=== PATIENT | male | born 1930 | race Caucasian/White ===

== ENCOUNTER 2017-05-09 07:17 | Inpatient (IN) | payer OTHER ==
--- NOTE | 2017-05-09 07:52 | EDPHY ---
H & P Time Seen by Provider: 05/09/17 07:38 HPI/ROS: CHIEF COMPLAINT: Confusion HISTORY OF PRESENT ILLNESS: Patient is an 86-year-old male who presents emergency department with his . His helps gives the history. The patient became ill yesterday with URI type symptoms. He developed a nonproductive cough and nasal congestion. He has also had a runny nose. His states his temperature was elevated at 99.7. She is given Tamiflu x4. Last evening he seemed agitated while in the bed. He was not responding as appropriately as normal. At 5:30 a.m. In the morning he had difficulty getting out of bed. He had a shuffled gait. He seems more confused. The patient states that he feels"not great."He complains of a mild cough with no chest pain. No abdominal pain. REVIEW OF SYSTEMS: My complete review of systems is negative except as mentioned in the HPI. Past Medical/Surgical History: Includes coronary artery disease, urinary tract infection, urosepsis, chronic back pain, hypertension, high cholesterol Past surgical history: CABG Social history: Patient lives at home with his . He does not smoke. Smoking Status: Never smoked Physical Exam: 37.3, 153/81, 70, 16, 94% on room air GENERAL: No acute distress, alert. HEENT: Eyes normal to inspection, normal pharynx, no signs of dehydration. NECK: No thyromegaly, no lymphadenopathy, supple. RESPIRATORY: Coarse breath sounds bilaterally, no rales, rhonchi or wheezing. CVS: Regular rate and rhythm, no rubs, murmurs, or gallops. ABDOMEN: Soft, nontender, nondistended, no organomegaly. BACK: Normal to inspection, no CVA tenderness. SKIN: Normal color, no rash, warm, dry. No pallor. EXTREMITIES: No pedal edema, no calf tenderness, no Homans sign or cords, no joint swelling. NEURO/PSYCH: Higher functions: Alert and Oriented x3. Normal speech and cognition. Normal mood and affect. Cranial nerves: Normal as tested. Cerebellar: Normal as tested. Good finger to nose, good [id number], normal gait. Peripheral exam: Normal motor exam. Normal sensation. Constitutional: Initial Vital Signs Temperature (C) 37.3 C 05/09/17 07:18 Heart Rate 78 05/09/17 07:18 Respiratory Rate 16 05/09/17 07:18 Blood Pressure 153/81 H 05/09/17 07:18 O2 Sat (%) 94 05/09/17 07:18 O2 Delivery Mode Room Air Allergies/Adverse Reactions: No Known Allergies Allergy (Unverified 03/21/09 19:21) Home Medications: Medication Instructions Recorded Aspirin [Aspirin 81mg (*)] 81 mg PO DAILY 04/29/14 Herbals/Supplements -Info Only 1 ea PO DAILY 04/29/14 Simvastatin [Zocor 40 mg] 40 mg PO DAILY18 04/29/14 clonazePAM [Klonopin (*)] 0.5 mg PO HS 04/29/14 Metoprolol Tartrate [Lopressor 50 50 mg PO BID #60 tab 05/04/14 mg (*)] Tamsulosin HCl [Flomax 0.4 MG (*)] 0.4 mg PO DAILY #30 cap 05/04/14 Medical Decision Making ED Course/Re-evaluation: In the emergency department I met the patient on arrival. I took history from both the patient and his . An IV was placed. Patient was given normal saline 500 mL IV for hydration. Laboratory studies, EKG, head CT and chest x- ray were ordered. Patient's sodium is low 133. Glucose was 106. Chemistry panel otherwise unremarkable. CBC showed a mild anemia. Lactic acid was 0.6. Differential Diagnosis: My differential includes but is not limited to pneumonia, bronchitis, URI, influenza, urinary tract infection, bacteremia, sepsis - Data Points Laboratory Results: Laboratory Results 05/09/17 07:35 05/09/17 07:35 05/09/17 05/09/17 05/09/17 08:05 07:35 07:35 WBC RBC Hgb Hct MCV MCH MCHC RDW Plt Count MPV Neut % (Auto) Lymph % (Auto) [place] % (Auto) Eos % (Auto) Baso % (Auto) Nucleat RBC Rel Count Absolute Neuts (auto) Absolute Lymphs (auto) Absolute Monos (auto) Absolute Eos (auto) Absolute Basos (auto) Absolute Nucleated RBC Immature Gran % Immature Gran # PT INR APTT VBG Lactic Acid 0.6 mmol/L L mmol/L (0.7-2.1) Sodium Potassium Chloride Carbon Dioxide Anion Gap BUN Creatinine Estimated GFR Glucose Calcium Total Bilirubin Urine Color Pending Urine Appearance Pending Urine pH Pending Ur Specific [place] Pending Urine Protein Pending Urine Ketones Pending Urine Blood Pending Urine Nitrate Pending Urine Bilirubin Pending Urine Urobilinogen Pending Ur Leukocyte Esterase Pending Urine RBC Pending Urine WBC Pending Ur Epithelial Cells Pending Urine Glucose Pending Nasal Influenza A PCR Pending Nasal Influenza B PCR Pending 05/09/17 05/09/17 05/09/17 07:35 07:35 07:35 WBC 7.83 10^3/uL 10^3/uL (3.80-9.50) RBC 4.50 10^6/uL 10^6/uL (4.40-6.38) Hgb 13.4 g/dL L g/dL (13.7-17.5) Hct 39.5 % L % (40.0-51.0) MCV 87.8 fL fL (81.5-99.8) MCH 29.8 pg pg (27.9-34.1) MCHC 33.9 g/dL g/dL (32.4-36.7) RDW 13.6 % % (11.5-15.2) Plt Count 174 10^3/uL 10^3/uL (150-400) MPV 9.1 fL fL (8.7-11.7) Neut % (Auto) 78.4 % H % (39.3-74.2) Lymph % (Auto) 10.2 % L % (15.0-45.0) [place] % (Auto) 9.8 % % (4.5-13.0) Eos % (Auto) 0.9 % % (0.6-7.6) Baso % (Auto) 0.3 % % (0.3-1.7) Nucleat RBC Rel Count 0.0 % % (0.0-0.2) Absolute Neuts (auto) 6.14 10^3/uL 10^3/uL (1.70-6.50) Absolute Lymphs (auto) 0.80 10^3/uL L 10^3/uL (1.00-3.00) Absolute Monos (auto) 0.77 10^3/uL 10^3/uL (0.30-0.80) Absolute Eos (auto) 0.07 10^3/uL 10^3/uL (0.03-0.40) Absolute Basos (auto) 0.02 10^3/uL 10^3/uL (0.02-0.10) Absolute Nucleated RBC 0.00 10^3/uL 10^3/uL (0-0.01) Immature Gran % 0.4 % % (0.0-1.1) Immature Gran # 0.03 10^3/uL 10^3/uL (0.00-0.10) PT 13.7 SEC SEC (12.0-15.0) INR 1.03 (0.83-1.16) APTT 33.1 SEC SEC (23.0-38.0) VBG Lactic Acid Sodium 133 mEq/L L mEq/L (135-145) Potassium 4.7 mEq/L mEq/L (3.5-5.2) Chloride 98 mEq/L mEq/L (97-110) Carbon Dioxide 23 mEq/l mEq/l (22-31) Anion Gap 12 mEq/L mEq/L (8-16) BUN 18 mg/dL mg/dL (7-23) Creatinine 1.2 mg/dL mg/dL (0.7-1.3) Estimated GFR 57 Glucose 106 mg/dL H mg/dL (70-100) Calcium 8.9 mg/dL mg/dL (8.5-10.4) Total Bilirubin 0.7 mg/dL mg/dL (0.1-1.4) Urine Color Urine Appearance Urine pH Ur Specific [place] Urine Protein Urine Ketones Urine Blood Urine Nitrate Urine Bilirubin Urine Urobilinogen Ur Leukocyte Esterase Urine RBC Urine WBC Ur Epithelial Cells Urine Glucose Nasal Influenza A PCR Nasal Influenza B PCR Medications Given: Discontinued Medications Sodium Chloride (Ns) 500 mls @ 0 mls/hr IV EDNOW ONE; Wide Open PRN Reason: Protocol Stop: 05/09/17 08:00 Last Admin: 05/09/17 08:01 Dose: 500 mls Departure - Departure Disposition: [facility] Acute Condition: Good Referrals: MAR FELIX [Primary Care Provider] - As per Instructions
[2017-05-09] MEDS ORDERED: NS 500 ML IV ONE (07:59)
[2017-05-09 08:07] LABS: PLATELET COUNT 174 10^3/uL (150-400)
[2017-05-09 08:17] LABS: INR 1.03 (0.83-1.16); PROTIME(PATIENT) 13.7 SEC (12.0-15.0)
[2017-05-09] MEDS ORDERED: ALBUTEROL 3 ML DEYVIAL IH PRN (10:28)
[2017-05-09] MEDS ORDERED: ONDANSETRON DISINTEGRATING 4 MG TAB PO PRN (10:28)
[2017-05-09] MEDS ORDERED: ACETAMINOPHEN 325 MG TAB PO PRN (10:28)
[2017-05-09] MEDS ORDERED: ONDANSETRON 4 MG/2 ML VIAL IVP PRN (10:28)
[2017-05-09] MEDS ORDERED: NS 1,000 ML IV SCH (10:30)
--- NOTE | 2017-05-09 10:35 | PDGENHP ---
History and Physical - Chief Complaint Fever, malaise - History of Present Illness Patient is an 86-year-old male who presents with his . His helps gives the history. The patient became ill 2-3 days ago with URI type symptoms. He developed a nonproductive cough and nasal congestion. He has also had a runny nose. His states his temperature was elevated at 99.7. She is given Tamiflu x4. Last evening he seemed agitated while in the bed. He was not responding as appropriately as normal. At 5:30 a.m. In the morning he had difficulty getting out of bed. He had a shuffled gait. He seems more confused. The patient states that he feels"not great." . He c/o of coughing and chest congestion. He denies cp, palpitations, leg swelling, n/v. Oral intake has been low. Studies: CXR: no acute infiltrate (personally reviewed) Past Medical/Surgical History: Includes coronary artery disease, urinary tract infection, urosepsis, chronic back pain, hypertension, high cholesterol Past surgical history: CABG Social history: Patient lives at home with his . He does not smoke. FmHx: Parents are Lab/data: CXR per above no leukocytosis bmp unremarkable, mild hyponatremia History Information - Allergies/Home Medication List Allergies/Adverse Reactions: No Known Allergies Allergy (Unverified 03/21/09 19:21) Home Medications: Aspirin [Aspirin 81mg (*)] 81 mg PO HS 04/29/14 [Last Taken 05/08/17] Herbals/Supplements -Info Only 1 ea PO DAILY 04/29/14 [Last Taken 05/08/17] Simvastatin [Zocor 40 mg] 40 mg PO DAILY18 04/29/14 [Last Taken 05/08/17] clonazePAM [Klonopin (*)] 0.5 mg PO HS 04/29/14 [Last Taken 05/08/17] Cholecalciferol Vit D3 [Vitamin D3 (*)] 1,000 units PO DAILY 05/09/17 [Last Taken 05/08/17] Metoprolol Tartrate [Lopressor 25 mg (*)] 25 mg PO BID 05/09/17 [Last Taken 21:00] Tamsulosin HCl [Flomax 0.4 MG (*)] 0.4 mg PO HS 05/09/17 [Last Taken 05/08/17] I have personally reviewed and updated: medical history, social history - Social History Smoking Status: Never smoked Review of Systems Review of Systems: ROS: 10pt was reviewed & negative except for what was stated in HPI & below Physical Exam Physical Exam: Temp Pulse Resp BP Pulse Ox 36.7 C 70 16 138/73 H 89 L 05/09/17 10:12 05/09/17 10:12 05/09/17 10:12 05/09/17 10:12 05/09/17 10:12 Constitutional: no apparent distress, not in pain Eyes: PERRL, EOMI Ears, Nose, Mouth, Throat: hearing normal, dry mucous membranes Cardiovascular: regular rate and rhythym, No JVD, No edema Respiratory: reduced air movement, expiratory wheeze Gastrointestinal: normoactive bowel sounds, soft, non-tender abdomen Genitourinary: no bladder fullness Skin: warm Musculoskeletal: generalized weakness Neurologic: No AAOx3 Psychiatric: interacting appropriately, encephalopathic (likely baseline) Lymph, Heme, Immunologic: No petechiae Lab Data & Imaging Review 05/09/17 07:35 05/09/17 07:35 WBC 7.83 10^3/uL (3.80-9.50) 05/09/17 07:35 RBC 4.50 10^6/uL (4.40-6.38) 05/09/17 07:35 Hgb 13.4 g/dL (13.7-17.5) L 05/09/17 07:35 Hct 39.5 % (40.0-51.0) L 05/09/17 07:35 MCV 87.8 fL (81.5-99.8) 05/09/17 07:35 MCH 29.8 pg (27.9-34.1) 05/09/17 07:35 MCHC 33.9 g/dL (32.4-36.7) 05/09/17 07:35 RDW 13.6 % (11.5-15.2) 05/09/17 07:35 Plt Count 174 10^3/uL (150-400) 05/09/17 07:35 MPV 9.1 fL (8.7-11.7) 05/09/17 07:35 Neut % (Auto) 78.4 % (39.3-74.2) H 05/09/17 07:35 Lymph % (Auto) 10.2 % (15.0-45.0) L 05/09/17 07:35 [place] % (Auto) 9.8 % (4.5-13.0) 05/09/17 07:35 Eos % (Auto) 0.9 % (0.6-7.6) 05/09/17 07:35 Baso % (Auto) 0.3 % (0.3-1.7) 05/09/17 07:35 Nucleat RBC Rel Count 0.0 % (0.0-0.2) 05/09/17 07:35 Absolute Neuts (auto) 6.14 10^3/uL (1.70-6.50) 05/09/17 07:35 Absolute Lymphs (auto) 0.80 10^3/uL (1.00-3.00) L 05/09/17 07:35 Absolute Monos (auto) 0.77 10^3/uL (0.30-0.80) 05/09/17 07:35 Absolute Eos (auto) 0.07 10^3/uL (0.03-0.40) 05/09/17 07:35 Absolute Basos (auto) 0.02 10^3/uL (0.02-0.10) 05/09/17 07:35 Absolute Nucleated RBC 0.00 10^3/uL (0-0.01) 05/09/17 07:35 Immature Gran % 0.4 % (0.0-1.1) 05/09/17 07:35 Immature Gran # 0.03 10^3/uL (0.00-0.10) 05/09/17 07:35 PT 13.7 SEC (12.0-15.0) 05/09/17 07:35 INR 1.03 (0.83-1.16) 05/09/17 07:35 APTT 33.1 SEC (23.0-38.0) 05/09/17 07:35 VBG Lactic Acid 0.6 mmol/L (0.7-2.1) L 05/09/17 08:05 Sodium 133 mEq/L (135-145) L 05/09/17 07:35 Potassium 4.7 mEq/L (3.5-5.2) 05/09/17 07:35 Chloride 98 mEq/L (97-110) 05/09/17 07:35 Carbon Dioxide 23 mEq/l (22-31) 05/09/17 07:35 Anion Gap 12 mEq/L (8-16) 05/09/17 07:35 BUN 18 mg/dL (7-23) 05/09/17 07:35 Creatinine 1.2 mg/dL (0.7-1.3) 05/09/17 07:35 Estimated GFR 57 05/09/17 07:35 Glucose 106 mg/dL (70-100) H 05/09/17 07:35 Calcium 8.9 mg/dL (8.5-10.4) 05/09/17 07:35 Total Bilirubin 0.7 mg/dL (0.1-1.4) 05/09/17 07:35 Urine Color YELLOW 05/09/17 07:35 Urine Appearance CLEAR 05/09/17 07:35 Urine pH 6.0 (5.0-7.5) 05/09/17 07:35 Ur Specific [place] 1.016 (1.002-1.030) 05/09/17 07:35 Urine Protein NEGATIVE (NEGATIVE) 05/09/17 07:35 Urine Ketones NEGATIVE (NEGATIVE) 05/09/17 07:35 Urine Blood NEGATIVE (NEGATIVE) 05/09/17 07:35 Urine Nitrate NEGATIVE (NEGATIVE) 05/09/17 07:35 Urine Bilirubin NEGATIVE (NEGATIVE) 05/09/17 07:35 Urine Urobilinogen NEGATIVE EU (0.2-1.0) 05/09/17 07:35 Ur Leukocyte Esterase NEGATIVE (NEGATIVE) 05/09/17 07:35 Urine RBC 3-5 /hpf (0-3) H 05/09/17 07:35 Urine WBC 1-3 /hpf (0-3) 05/09/17 07:35 Ur Epithelial Cells NONE SEEN /lpf (NONE-1+) 05/09/17 07:35 Urine Mucus TRACE /lpf (NONE-1+) 05/09/17 07:35 Urine Glucose NEGATIVE (NEGATIVE) 05/09/17 07:35 Nasal Influenza A PCR NEGATIVE FOR FLU A (NEGATIVE) 05/09/17 07:35 Nasal Influenza B PCR NEGATIVE FOR FLU B (NEGATIVE) 05/09/17 07:35 Assessment & Plan Assessment: #acute bronchitis #Dehydration #Acute on Chronic Encephalopathy #Generalized Weakness #Hx of CAD Plan: inpatient cont Levaquin Provided additional IVF Start IV steroids Schedule and PRN nebs Lovenox for DVT proph Full code, confirmed at bedside
--- NOTE | 2017-05-09 10:53 | PDMN ---
Medical Necessity Medical necessity: C/M review: est. > 2 MN LOS for eval and TX of acute bronchitis, dehydration, acute on chronic encephalopathy, generalized weakness requiring IV fluids, ongoing IV Levaquin, IV steroids, scheduled and as needed nebs, pulse oximetry, acute inpt PT, comorbid upper respiratory infection symptoms, elevated temperature treated with 4 doses oral Tamiflu prior to this admission, history of CAD, urinary tract infection, urosepsis, chronic back pain , hypertension, high cholesterol, CABG per H/P.
[2017-05-09] MEDS: methylPREDNISolone SOD SUCC 125 MG/2 ML VIAL IVP SCH ×2 (11:48→20:01)
[2017-05-09] MEDS: IPRATROPIUM/ALBUTEROL 3 ML DEYVIAL IH SCH ×3 (12:17→21:09)
--- NOTE | 2017-05-09 12:24 | ASMTCMCOM ---
CM Note CM Note Notes: Spoke w/RN, pt lives with and is normally independent with all ADLs, he hikes with walking sticks and they recently just went to [place]. PT is ordered but RN anticipates pt will dc home w/support of when medically stable. CM available for any changes DC Plan: Independent Date Signed: 05/09/2017 12:23 PM Electronically Signed By:Alba Aguirre RN
[2017-05-09] MEDS: ATORVASTATIN CALCIUM 20 MG TAB PO SCH (17:29)
[2017-05-09] MEDS ORDERED: NON-FORMULARY NEW DRUG (Simvastatin [Zocor 40 Mg] 40 MG) PO SCH (18:00)
[2017-05-09] MEDS: ASPIRIN 81 MG CHEWABLE TAB PO SCH (20:00)
[2017-05-09] MEDS: TAMSULOSIN HCL 0.4 MG CAP PO SCH (20:00)
[2017-05-09] MEDS: METOPROLOL TARTRATE 25 MG TAB PO SCH (20:01)
[2017-05-09] MEDS: clonazePAM 0.5 MG TAB PO SCH (20:01)
[2017-05-10 05:31] LABS: PLATELET COUNT 170 10^3/uL (150-400)
[2017-05-10] MEDS: IPRATROPIUM/ALBUTEROL 3 ML DEYVIAL IH SCH ×4 (06:31→18:34)
[2017-05-10] MEDS ORDERED: Herbals/Supplements -Info Only PO SCH (09:00)
[2017-05-10] MEDS: METOPROLOL TARTRATE 25 MG TAB PO SCH ×2 (09:39→20:07)
[2017-05-10] MEDS: ENOXAPARIN 40 MG/0.4 ML SYR SC SCH (09:40)
[2017-05-10] MEDS: CHOLECALCIFEROL VIT D3 1,000 UNITS TAB PO SCH (09:40)
[2017-05-10] MEDS: methylPREDNISolone SOD SUCC 125 MG/2 ML VIAL IVP SCH (09:40)
--- NOTE | 2017-05-10 14:52 | HOSPPROG ---
Hospitalist Progress Note Assessment/Plan: #acute bronchitis, human metapneumovirus #Dehydration, resolved #Acute on Chronic Encephalopathy, resolving #Generalized Weakness, improving #Hx of CAD Plan: cont inpatient Stop Levaquin no further IVF Change IV to PO steroids Schedule and PRN nebs PT Lovenox for DVT proph Full code, confirmed at bedside Subjective: Feels better. afebrile. Human metapneumovirus identified Objective: Vital Signs Temp Pulse Resp BP Pulse Ox 36.3 C 64 20 142/81 H 93 05/10/17 12:00 05/10/17 12:00 05/10/17 12:41 05/10/17 12:00 05/10/17 12:41 Microbiology 05/09/17 11:45 Respiratory Panel (PCR) - Final Nasal, Sinus - [place] Viral Transport Human Metapneumovirus Detected Laboratory Results 05/10/17 04:50 05/10/17 04:50 05/09/17 05/10/17 05/11/17 05:59 05:59 05:59 Intake Total 800 Output Total 1900 200 Balance -1100 -200 PT 13.7 SEC (12.0-15.0) 05/09/17 07:35 INR 1.03 (0.83-1.16) 05/09/17 07:35 - Physical Exam Constitutional: no apparent distress Eyes: PERRL Ears, Nose, Mouth, Throat: moist mucous membranes, hearing normal Cardiovascular: regular rate and rhythym, No edema Respiratory: reduced air movement, expiratory wheeze Gastrointestinal: normoactive bowel sounds, soft, non-tender abdomen Skin: warm Musculoskeletal: generalized weakness Neurologic: No AAOx3 Psychiatric: encephalopathic Lymph, Heme, Immunologic: No petechiae ICD10 Worksheet Patient Problems: Problems Problem Status Onset Atrial fibrillation Acute Bacteremia Acute CAD (coronary artery disease) Acute Infection due to ESBL-producing Escherichia coli Acute Ischemic cardiomyopathy Acute
[2017-05-10] MEDS: ATORVASTATIN CALCIUM 20 MG TAB PO SCH (18:23)
[2017-05-10] MEDS: ASPIRIN 81 MG CHEWABLE TAB PO SCH (20:07)
[2017-05-10] MEDS: clonazePAM 0.5 MG TAB PO SCH (20:07)
[2017-05-10] MEDS: TAMSULOSIN HCL 0.4 MG CAP PO SCH (20:08)
[2017-05-11 03:24] VITALS: RESP 18
[2017-05-11] MEDS: IPRATROPIUM/ALBUTEROL 3 ML DEYVIAL IH SCH ×2 (05:27→10:27)
[2017-05-11 07:15] VITALS: TEMP 97.5
[2017-05-11] MEDS: ENOXAPARIN 40 MG/0.4 ML SYR SC SCH (08:23)
[2017-05-11] MEDS: METOPROLOL TARTRATE 25 MG TAB PO SCH (08:24)
[2017-05-11] MEDS: CHOLECALCIFEROL VIT D3 1,000 UNITS TAB PO SCH (08:24)
[2017-05-11 08:26] VITALS: BP 148/87
[2017-05-11] MEDS ORDERED: predniSONE 20 MG TAB PO SCH (09:00)
[2017-05-11 11:20] VITALS: PULSE 64; O2SAT 94
--- NOTE | 2017-05-11 22:50 | GDS ---
[f rep st] DISCHARGE SUMMARY DISCHARGE DIAGNOSES: Include: 1. Acute bronchitis secondary to human metapneumovirus. 2. Acute on chronic encephalopathy secondary to pulmonary illness, resolved. 3. History of coronary artery disease. 4. Dehydration. HISTORY OF PRESENT ILLNESS: This is an 86-year-old male who presents with complaints of shortness of breath, fatigue, and cough. For details of patient's initial presentation, please see the history a nd physical dated 05/09/2017. CONSULTATIVE SERVICES: None. PROCEDURES: 1. On 05/09/2017, patient had a noncontrast CT of the head that showed no acute intracranial finding s. 2. 05/09/2017, patient had a chest x-ray, PA lateral, that showed findings consistent with bronchiti s. HOSPITAL COURSE: Acute bronchitis. Patient's respiratory panel is positive for human metapneumoviru s, placed on isolation, provided supportive care with supplemental oxygen, inhaled beta agonists, and steroids. He was initially initiated on antibiotics, which were discontinued after respiratory PCRs were back. Patient had been weaned off oxygen by the day of disposition. Cough is under better con trol. He is being discharged with a prednisone taper to complete over the course of the next 7 days. MEDICATIONS AT THE TIME OF DISPOSITION: Please reference the med rec printed on 05/11/2017. PENDING STUDIES: At the time of this dictation include blood cultures drawn 05/09/2017, which are pr eliminary. No growth to date. FOLLOWUP APPOINTMENTS: Include with his primary care provider at the completion of his prednisone ta per for post disposition followup. I spent greater than 30 minutes in the planning and coordination of this discharge. /[id number]/MODL
== END 2017-05-11 12:20 | disposition home or self-care (01) | DRG 193 ==
LOC: OBSVTOIN 09:04 → F3E 10:07
PROVIDERS: ADMIT Family Medicine; ATTEND Family Medicine
DX: J12.3 Human metapneumovirus pneumonia (principal); J20.8 Acute bronchitis due to other specified organisms; G93.41 Metabolic encephalopathy; E86.0 Dehydration; I10 Essential (primary) hypertension; I25.10 Atherosclerotic heart disease of native coronary artery without angina pectoris; M54.9 Dorsalgia, unspecified; Z95.1 Presence of aortocoronary bypass graft; Z87.440 Personal history of urinary (tract) infections
CPT/HCPCS: 97116-GP; 97162-GP; G8978-GP-CJ; G8979-GP-CI; G8980-GP-CI; J1650; J1956; J2930; J7512

== ENCOUNTER 2018-05-04 09:29 | Emergency (ER) | payer OTHER ==
--- NOTE | 2018-05-04 09:39 | EDPHY ---
H & P Time Seen by Provider: 05/04/18 09:30 HPI/ROS: CHIEF COMPLAINT: Shaking chills HISTORY OF PRESENT ILLNESS: Patient got a 3:30 a.m. And had a glass of milk because that is what he normally does when he can't sleep. He woke up around 8: 00 a.m. And his reports him having severe shaking chills. Not better or worse with anything, slightly improved at the time of ED arrival. Not associated with cough or dental symptoms, headache or stiff neck, sore throat, vomiting or diarrhea, or urinary symptoms. Lasted about an hour and now is better. REVIEW OF SYSTEMS: Eye: no change in vision ENT: no sore throat Cardiac: no chest pain or syncope Pulmonary: no cough or SOB Abdomen: no vomiting, diarrhea, abdominal pain Musculoskeletal: no back pain Skin: no rash Neuro: no headache Constitutional: HPI : no urinary symptoms A comprehensive 10 point review of systems is otherwise negative aside from elements mentioned in the history of present illness. PAST MEDICAL HISTORY: Discharge summary dated 05/11/2017 and 05/04/2014 personally reviewed, includes coronary artery bypass surgery with coronary disease, previous UTI sepsis, hypertension, hypercholesterolemia, atrial fibrillation paroxysmal. Social history: Was just in [place] in [facility], no mosquito exposure. Primary care doctor Rolando at [place]. General Appearance: Alert and conversant, cooperative. Eyes: No scleral icterus. ENT, Mouth: Normal mucous membranes. No trismus, normal pharynx. Respiratory: Decreased breath sounds in the left, no wheezing or rales, speaks in full sentences. Cardiovascular: Regular rate and rhythm. Gastrointestinal: Abdomen is soft and non tender. Neurological: Alert, face symmetric, normal motor and sensory in extremities. Skin: Warm and dry, no rashes. No petechiae or purpura. Musculoskeletal: Neck supple without meningeal signs. Psychiatric: Not agitated. Emergency Department course/MDM: Screen for infection including urinalysis chest x-ray and influenza, blood cultures. Sounds more likely to be rigors, having syncope or seizure unlikely. 1122: labs reviewed, flu negative and CXR/urine negative, requires admission for further monitoring as he looks unwell and feels too weak to go home. Case discussed with [facility] at this time; Dr. Prasad, 1129 - admit at [facility]. 1138: Dr. Ramesh Chacon accepting at [facility]. This is a patient requested transfer, [place] [facility] patient. Stable for transfer. Smoking Status: Never smoked Constitutional: Initial Vital Signs Temperature (C) 36.7 C 05/04/18 09:45 Heart Rate 77 05/04/18 09:45 Respiratory Rate 17 05/04/18 09:45 Blood Pressure 168/69 H 05/04/18 09:45 O2 Sat (%) 93 05/04/18 09:45 O2 Delivery Mode Nasal Cannula O2 (L/minute) 2 Allergies/Adverse Reactions: No Known Allergies Allergy (Unverified 03/21/09 19:21) Home Medications: Medication Instructions Recorded Aspirin [Aspirin 81mg (*)] 81 mg PO HS 04/29/14 Herbals/Supplements -Info Only 1 ea PO DAILY 04/29/14 Simvastatin [Zocor 40 mg] 40 mg PO DAILY18 04/29/14 Cholecalciferol Vit D3 [Vitamin D3 1,000 units PO DAILY 05/09/17 (*)] Metoprolol Tartrate [Lopressor 25 25 mg PO BID 05/09/17 mg (*)] Tamsulosin HCl [Flomax 0.4 MG (*)] 0.4 mg PO HS 05/09/17 predniSONE 10 mg PO DAILY #13 tab 05/11/17 Medical Decision Making - Diagnostics EKG Interpretation: 12-lead EKG interpreted by me; official reading is in computer system. My interpretation is sinus rhythm no ischemic changes, normal. Imaging Results: Imaging Impressions Chest X-Ray 05/04/18 09:39 Impression: Post CABG; no acute cardiopulmonary abnormality identified. Imaging: I viewed and interpreted images myself Differential Diagnosis: Differential considered including but not limited to influenza, sepsis, pneumonia, UTI, endocarditis, other viral; or seizure - Data Points Laboratory Results: Laboratory Results 05/04/18 09:35 05/04/18 09:35 05/04/18 05/04/18 05/04/18 10:20 09:50 09:48 WBC RBC Hgb Hct MCV MCH MCHC RDW Plt Count MPV Neut % (Auto) Lymph % (Auto) [place] % (Auto) Eos % (Auto) Baso % (Auto) Nucleat RBC Rel Count Absolute Neuts (auto) Absolute Lymphs (auto) Absolute Monos (auto) Absolute Eos (auto) Absolute Basos (auto) Absolute Nucleated RBC Immature Gran % Immature Gran # PT INR APTT VBG Lactic Acid 1.5 mmol/L mmol/L (0.7-2.1) Sodium Potassium Chloride Carbon Dioxide Anion Gap BUN Creatinine Estimated GFR Glucose Calcium Total Bilirubin Urine Color YELLOW Urine Appearance CLEAR Urine pH 7.0 (5.0-7.5) Ur Specific [place] 1.010 (1.002-1.030) Urine Protein NEGATIVE (NEGATIVE) Urine Ketones NEGATIVE (NEGATIVE) Urine Blood NEGATIVE (NEGATIVE) Urine Nitrate NEGATIVE (NEGATIVE) Urine Bilirubin NEGATIVE (NEGATIVE) Urine Urobilinogen NEGATIVE EU EU (0.2-1.0) Ur Leukocyte Esterase NEGATIVE (NEGATIVE) Urine Glucose NEGATIVE (NEGATIVE) Nasal Influenza A PCR NEGATIVE FOR FLU A (NEGATIVE) Nasal Influenza B PCR NEGATIVE FOR FLU B (NEGATIVE) 05/04/18 05/04/18 05/04/18 09:35 09:35 09:35 WBC 11.60 10^3/uL H 10^3/uL (3.80-9.50) RBC 4.73 10^6/uL 10^6/uL (4.40-6.38) Hgb 14.0 g/dL g/dL (13.7-17.5) Hct 42.4 % % (40.0-51.0) MCV 89.6 fL fL (81.5-99.8) MCH 29.6 pg pg (27.9-34.1) MCHC 33.0 g/dL g/dL (32.4-36.7) RDW 13.6 % % (11.5-15.2) Plt Count 232 10^3/uL 10^3/uL (150-400) MPV 9.1 fL fL (8.7-11.7) Neut % (Auto) 87.5 % H % (39.3-74.2) Lymph % (Auto) 10.4 % L % (15.0-45.0) [place] % (Auto) 1.0 % L % (4.5-13.0) Eos % (Auto) 0.5 % L % (0.6-7.6) Baso % (Auto) 0.2 % L % (0.3-1.7) Nucleat RBC Rel Count 0.0 % % (0.0-0.2) Absolute Neuts (auto) 10.14 10^3/uL H 10^3/uL (1.70-6.50) Absolute Lymphs (auto) 1.21 10^3/uL 10^3/uL (1.00-3.00) Absolute Monos (auto) 0.12 10^3/uL L 10^3/uL (0.30-0.80) Absolute Eos (auto) 0.06 10^3/uL 10^3/uL (0.03-0.40) Absolute Basos (auto) 0.02 10^3/uL 10^3/uL (0.02-0.10) Absolute Nucleated RBC 0.00 10^3/uL 10^3/uL (0-0.01) Immature Gran % 0.4 % % (0.0-1.1) Immature Gran # 0.05 10^3/uL 10^3/uL (0.00-0.10) PT 13.3 SEC SEC (12.0-15.0) INR 1.05 (0.83-1.16) APTT 20.0 SEC L SEC (23.0-38.0) VBG Lactic Acid Sodium 136 mEq/L mEq/L (135-145) Potassium 5.0 mEq/L mEq/L (3.5-5.2) Chloride 98 mEq/L mEq/L (97-110) Carbon Dioxide 25 mEq/l mEq/l (22-31) Anion Gap 13 mEq/L mEq/L (6-14) BUN 18 mg/dL mg/dL (7-23) Creatinine 1.2 mg/dL mg/dL (0.7-1.3) Estimated GFR 57 Glucose 105 mg/dL H mg/dL (70-100) Calcium 9.9 mg/dL mg/dL (8.5-10.4) Total Bilirubin 0.6 mg/dL mg/dL (0.1-1.4) Urine Color Urine Appearance Urine pH Ur Specific [place] Urine Protein Urine Ketones Urine Blood Urine Nitrate Urine Bilirubin Urine Urobilinogen Ur Leukocyte Esterase Urine Glucose Nasal Influenza A PCR Nasal Influenza B PCR Medications Given: Discontinued Medications Sodium Chloride (Ns) 2,100 mls @ 4,200 mls/hr 30 ml/kg infuse over 30 min ( 2100 ml) IV EDNOW ONE PRN Reason: Protocol Stop: 05/04/18 10:17 Last Admin: 05/04/18 10:04 Dose: 2,100 mls Departure - Departure Disposition: [facility] Clinical Impression: Shaking chills Condition: Good Referrals: Patient,NotPresent [Unknown] - As per Instructions
--- NOTE | 2018-05-04 09:44 | CPEKG ---
Test Reason : OPEN Blood Pressure : / mmHG Vent. Rate : 077 BPM Atrial Rate : 077 BPM P-R Int : 151 ms QRS Dur : 101 ms QT Int : 362 ms P-R-T Axes : -03 010 084 degrees QTc Int : 410 ms Sinus rhythm Confirmed by Dayo Gongora ([id number]) on 05/04/2018 9:43:34 AM Referred By: PHYSICIAN ED Confirmed By:Dayo Gongora
[2018-05-04] MEDS ORDERED: NS 2,100 ML IV ONE (09:48)
[2018-05-04 09:52] LABS: PLATELET COUNT 232 10^3/uL (150-400)
[2018-05-04 10:00] LABS: INR 1.05 (0.83-1.16); PROTIME(PATIENT) 13.3 SEC (12.0-15.0)
[2018-05-04 12:56] VITALS: BP 148/67
== END 2018-05-04 12:56 | disposition short-term general hospital (02) ==
LOC: EDUNIT#
DX: R68.83 Chills (without fever) (principal); E86.9 Volume depletion, unspecified; I10 Essential (primary) hypertension; I25.10 Atherosclerotic heart disease of native coronary artery without angina pectoris; Z95.1 Presence of aortocoronary bypass graft; Z87.440 Personal history of urinary (tract) infections